=== PATIENT | female | born 1940 | race Hispanic/Latino ===

== ENCOUNTER 2017-11-22 14:14 | Inpatient (IN) | payer OTHER ==
[2017-11-22] VITALS (9 sets, daily range): BP systolic 93–138; BP diastolic 41–58
[~2017-11-22] VITALS: Ht 167.6 cm; Wt 59.8 kg
[2017-11-22] MEDS ORDERED: ONDANSETRON HCL 4 MG/2 ML VIAL ONE ×2 (14:47→14:56)
[2017-11-22 14:57] LABS: BASOPHILS % (AUTO) 0.6 % (0.0-5.0); EOSINOPHILS % (AUTO) 0.2 % (0.0-8.0); LYMPHOCYTES % (AUTO) 22.4 % (21.0-51.0); MEAN CORPUSCULAR HEMOGLOBIN 33.1 pg (27.0-33.0); MEAN CORPUSCULAR HGB CONC 34.4 g/dL (32.0-36.0); MEAN CORPUSCULAR VOLUME 96.3 fL (79-99); MONOCYTES % (AUTO) 6.2 % (3.0-13.0); NEUTROPHILS % (AUTO) 70.6 % (40.0-77.0); PLATELET COUNT (AUTO) 267 K/uL (130-400); RED BLOOD CELL COUNT(AUTO) 1.48 MIL/uL (4.00-5.50); RED CELL DISTRIBUTION WIDTH 16.6 % (11.0-15.5); WHITE BLOOD COUNT (AUTO) 7.4 K/uL (4.8-10.8)
[2017-11-22 15:07] LABS: HEMATOCRIT 14.2 % (36-48)
[2017-11-22 15:09] LABS: INR 2.61 (0.85-1.15); PARTIAL THROMBOPLASTIN TIME 31.3 SEC (26.3-35.5); PROTHROMBIN TIME 26.9 SEC (9.6-11.6)
[2017-11-22 15:21] LABS: ALBUMIN 2.5 g/dL (3.5-5.0); BILIRUBIN,TOTAL 0.3 mg/dL (0.2-1.0); CREATINE KINASE MB 0.6 ng/mL (0.5-3.6); CREATININE 1.1 mg/dL (0.5-1.5); POTASSIUM 5.6 mmol/L (3.5-5.1); TOTAL PROTEIN, SERUM 5.1 g/dL (6.0-8.3)
[2017-11-22 15:28] LABS: B-TYPE NATRIURETIC PEPTIDE 70 pg/mL (0-100)
[2017-11-22] MEDS ORDERED: WARF-67 PO (17:11)
[2017-11-22] MEDS ORDERED: ATEN100T PO (17:35)
[2017-11-22] MEDS ORDERED: LOSA100T29 PO (17:35)
[2017-11-22] MEDS ORDERED: LEVO50 PO (17:37)
[2017-11-22] MEDS ORDERED: SODIUM CHLORIDE 0.9% 1000ML 1,000 ML IV SCH (18:30)
[2017-11-23] VITALS (19 sets, daily range): BP systolic 117–158; BP diastolic 48–77
[2017-11-23 01:27] LABS: HEMATOCRIT 17.7 % (36-48)
[2017-11-23] MEDS ORDERED: FUROSEMIDE 10 MG/ML 4ML VIAL IV SCH ×2 (02:45→10:00)
[2017-11-23] MEDS: PANTOPRAZOLE 40 MG/VIAL IVP SCH (09:33)
[2017-11-23 12:51] LABS: HEMATOCRIT 32.4 % (36-48)
[2017-11-23 16:53] LABS: HEMATOCRIT 32.4 % (36-48)
[2017-11-23 18:27] LABS: INR 1.85 (0.85-1.15); PARTIAL THROMBOPLASTIN TIME 28.5 SEC (26.3-35.5); PROTHROMBIN TIME 19.2 SEC (9.6-11.6)
[2017-11-24] VITALS (20 sets, daily range): BP systolic 129–163; BP diastolic 43–67
[2017-11-24 04:41] LABS: BASOPHILS % (AUTO) 0.5 % (0.0-5.0); EOSINOPHILS % (AUTO) 2.3 % (0.0-8.0); HEMATOCRIT 29.4 % (36-48); LYMPHOCYTES % (AUTO) 22.7 % (21.0-51.0); MEAN CORPUSCULAR HEMOGLOBIN 29.3 pg (27.0-33.0); MEAN CORPUSCULAR HGB CONC 34.9 g/dL (32.0-36.0); MEAN CORPUSCULAR VOLUME 84.2 fL (79-99); MONOCYTES % (AUTO) 11.4 % (3.0-13.0); NEUTROPHILS % (AUTO) 63.1 % (40.0-77.0); NUCLEATED RED BLOOD CELLS 0.1 % (0.0-0.19); PLATELET COUNT (AUTO) 189 K/uL (130-400); RED BLOOD CELL COUNT(AUTO) 3.49 MIL/uL (4.00-5.50); RED CELL DISTRIBUTION WIDTH 17.5 % (11.0-15.5); WHITE BLOOD COUNT (AUTO) 6.9 K/uL (4.8-10.8)
[2017-11-24 04:50] LABS: CREATININE 1.2 mg/dL (0.5-1.5); POTASSIUM 3.7 mmol/L (3.5-5.1)
[2017-11-24 04:52] LABS: INR 2.09 (0.85-1.15); PARTIAL THROMBOPLASTIN TIME 29.4 SEC (26.3-35.5); PROTHROMBIN TIME 21.6 SEC (9.6-11.6)
[2017-11-24] MEDS: PANTOPRAZOLE 40 MG/VIAL IVP SCH (08:53)
[2017-11-24] MEDS ORDERED: SODIUM CHLORIDE 0.9% 10 ML VIAL ONE (13:09)
[2017-11-24] MEDS ORDERED: PROPOFOL 10 MG/ML 20ML VIAL IV ONE (13:09)
[2017-11-24] MEDS ORDERED: PHENYLEPHRINE HCL 10 MG/ML 1ML VIAL IV ONE (13:09)
[2017-11-24] MEDS ORDERED: FENTANYL CITRATE PF 50 MCG/1 ML 2ML VIAL ONE (13:09)
[2017-11-25 03:36] VITALS: BP 146/57
[2017-11-25 07:31] VITALS: BP 129/63
[2017-11-25] MEDS ORDERED: PANTOPRAZOLE SODIUM 40 MG TABLET.DR PO SCH (09:45)
[2017-11-25 11:18] VITALS: BP 148/58
== END 2017-11-25 13:26 | disposition home or self-care (01) | DRG 377 ==
LOC: EDH 14:14 → EDHIP 15:48 → 2BH 16:48 → 2AH 11-23 18:09
PROVIDERS: ADMIT Family Medicine; ATTEND Family Medicine
PROC: 30233L1 Transfusion of Nonautologous Fresh Plasma into Peripheral Vein, Percutaneous Approach (ICD-10-PCS; 2017-11-22)
PROC: 30233K1 Transfusion of Nonautologous Frozen Plasma into Peripheral Vein, Percutaneous Approach (ICD-10-PCS; 2017-11-22)
PROC: 30233N1 Transfusion of Nonautologous Red Blood Cells into Peripheral Vein, Percutaneous Approach (ICD-10-PCS; 2017-11-22)
PROC: 30233N1 Transfusion of Nonautologous Red Blood Cells into Peripheral Vein, Percutaneous Approach (ICD-10-PCS; 2017-11-23)
PROC: 0DB48ZX Excision of Esophagogastric Junction, Via Natural or Artificial Opening Endoscopic, Diagnostic (ICD-10-PCS; principal; 2017-11-24)
PROC: 0DB68ZX Excision of Stomach, Via Natural or Artificial Opening Endoscopic, Diagnostic (ICD-10-PCS; 2017-11-24)
DX: K29.01 Acute gastritis with bleeding (principal); E43 Unspecified severe protein-calorie malnutrition; D62 Acute posthemorrhagic anemia; E11.9 Type 2 diabetes mellitus without complications; K21.0 Gastro-esophageal reflux disease with esophagitis; I10 Essential (primary) hypertension; E78.5 Hyperlipidemia, unspecified; Z96.653 Presence of artificial knee joint, bilateral; M19.90 Unspecified osteoarthritis, unspecified site; K27.9 Peptic ulcer, site unspecified, unspecified as acute or chronic, without hemorrhage or perforation; E03.9 Hypothyroidism, unspecified; Z90.710 Acquired absence of both cervix and uterus; Z79.01 Long term (current) use of anticoagulants; Z28.21 Immunization not carried out because of patient refusal
CPT/HCPCS: 36415; 71045; 80053; 82550; 82553; 83880; 84484; 85014; 85018; 85025; 85060; 85610; 85730; 86850; 86900; 86901; 86922; 86927; 88305; 88313; 88342; 93005; 99291; C9113; J1940; J2370; J2405; J2704; J3010; J7030; P9016; P9017